=== PATIENT | female | born 1955 | race Caucasian/White ===

== ENCOUNTER 2017-01-16 18:37 | Emergency (ER) | payer BC ==
[~2017-01-16] VITALS: Ht 154.9 cm; Wt 96.6 kg
[~2017-01-16 18:37] MED LIST: AMLO-218 PO; ASPI81TA3 PO; ATEN-51 PO; BENA40TA41 PO; ENAL5TAB89 PO; ERGO500014 PO; ERGO50007 PO; FAMO20TA18 PO; IBUP-1542 PO; NITR0.4T32 SL; OMEP20CA16 PO; OXYB5TAB7 PO; TEMA-106 PO; TEMA15CA PO; TRAM50TA2 PO; [UNRECOGNIZED DRUG - CODE] PO; [UNRECOGNIZED DRUG - CODE] PO
[2017-01-16 18:41] VITALS: Ht 154.9 cm; Wt 96.6 kg
[2017-01-16] MEDS ORDERED: PRED20TA PO (19:02)
[2017-01-16] MEDS ORDERED: FEXO180T61 PO (19:02)
[2017-01-16] MEDS ORDERED: TRIA15CR55 TOP (19:02)
[2017-01-16] MEDS ORDERED: ELIM TOP (19:02)
--- NOTE | 2017-01-16 19:10 | ERD ---
ER Documentation Chief Complaint Chief Complaint rash to right arm/leg x 2 weeks, states possible insect bites HPI 61-year-old female presents with itchy bumps on arms trunk and legs intermittently for the last 2 weeks. Also because he has similar lesions although fever. Think he may be appearing well in the house. There is no new pets, or new new dwelling's history of possible known insect exposures. There is no fevers, vomiting, shortness breath or chest pain. ROS All systems reviewed and are negative except as per history of present illness. Medications Home Meds Active Scripts Permethrin* (Elimite*) 5% Cr, 1 APPLIC TOP ONCE for 1 Day, TUB 2 bottles. Okay to treat partner as well. Apply at night and wash off in the morning. Wash all in the morning. Prov:KEEGAN MARTIN MD 01/16/17 Fexofenadine Hcl* (Angeli*) 180 Mg Tablet, 180 MG PO DAILY, #15 TAB Prov:KEEGAN MARTIN MD 01/16/17 Prednisone* (Prednisone*) 20 Mg Tab, 40 MG PO DAILY for 5 Days, TAB Prov:KEEGAN MARTIN MD 01/16/17 Triamcinolone Acetonide (Triamcinolone Acetonide) 0.1% - 15 Gm Cream.gm., 1 APPLIC TOP QID, #1 TUB Prov:KEEGAN MARTIN MD 01/16/17 Tramadol HCl (Tramadol HCl) 50 Mg Tablet, 50 MG PO Q6 Y for PAIN, #20 TAB Prov:KEEGAN ROLDNA PA-C 09/18/15 Ibuprofen* (Motrin*) 600 Mg Tab, 600 MG PO Q6H Y for PAIN AND OR ELEVATED TEMP, #30 TAB Prov:KEEGAN ROLDAN PA-C 09/18/15 Nitroglycerin* (Nitroglycerin* SL) 0.4 Mg Tab.subl, 0.4 MG SL Q5MIN Y for CHEST PAIN, #30 TAB Prov:CHRISTIANO BLANCO MD 05/30/14 Reported Medications Temazepam (Restoril) 15 Mg Cap, 15 MG PO QHS Y for slee, CAP 05/29/14 Ergocalciferol* (Drisdol* (Vitamin D2)) 50,000 Unit Capsule, 24347 UNIT PO Q7D, CAP 05/29/14 Famotidine* (Famotidine*) 20 Mg Tablet, 20 MG PO DAILY, TAB 05/29/14 Atenolol* (Atenolol*) 25 Mg Tablet, 25 MG PO DAILY, TAB 05/29/14 Amlodipine Besylate* (Norvasc*) 10 Mg Tablet, 10 MG PO DAILY, TAB 05/29/14 Benazepril Hcl* (Benazepril Hcl*) 40 Mg Tablet, 40 MG PO DAILY, TAB 05/29/14 Aspirin (Aspirin) 81 Mg Chew, 81 MG PO DAILY, TAB.CHEW 05/29/14 Allergies Allergies: Coded Allergies: No Known Allergy (Verified , 05/13/09) PMhx/Soc Medical and Surgical Hx: pt denies Surgical Hx History of Surgery: No Anesthesia Reaction: No Hx Neurological Disorder: No Hx Respiratory Disorders: No Hx Cardiac Disorders: Yes (HTN ) Hx Psychiatric Problems: No Hx Miscellaneous Medical Probl: No Hx Alcohol Use: No Hx Substance Use: No Hx Tobacco Use: No Physical Exam Vitals Vital Signs Date Time Temp Pulse Resp B/P Pulse Ox O2 Delivery O2 Flow Rate FiO2 01/16/17 18:41 98.1 84 20 160/87 98 Physical Exam Const: [] Alert, [id number]. Obese. Head: Atraumatic Eyes: Normal Conjunctiva ENT: Normal External Ears, Nose and Mouth. Neck: Full range of motion..~ No meningismus. Resp: Clear to auscultation bilaterally Cardio: Regular rate and rhythm, no murmurs Abd: Soft, non tender, non distended. Normal bowel sounds Skin: No petechiae or rashes scattered excoriated papules on the trunk and extremities and thought erythema, warmth or induration, streaking or discharge. Back: No midline or flank tenderness Ext: No cyanosis, or edema Neur: Awake and alert Psych: Normal Mood and Affect Procedures/MDM Patient presents with signs and symptoms of what appear to be local reactions to insect bites. They do not have the classic appearance of scabies but given the duration will treat with permethrin with treatment of her spouse as well as well as triamcinolone, Angeli and short course of prednisone. Is no evidence of cellulitis, purpura or life-threatening rashes. There are advised to fumigate the household as well. The patient was stable with no new complaints during the ER course. Clinically, there is no current evidence to suggest meningitis, sepsis, acute abdomen, pneumonia, acute coronary syndrome, pulmonary embolism, or any other emergent condition appearing to require further evaluation or hospitalization. The patient should certainly return for any new or worsening symptoms per the aftercare instructions. They should otherwise follow-up with her primary care doctor for reevaluation this week. Departure Diagnosis: Primary Impression: Insect bites Encounter type: initial encounter Qualified Code: W57.XXXA - Insect bite, initial encounter Additional Impression: Rash Condition: Stable Patient Instructions: Insect Bites and Stings Additional Instructions: We will treat for scabies that may be mites or some other type of insects. Recommend fumigate household as well for persistent symptoms. KEEGAN MARTIN MD Jan 16, 2017 19:10
== END 2017-01-16 19:20 | disposition home or self-care (01) ==
LOC: FTE 18:37
DX: S20.362A Insect bite (nonvenomous) of left front wall of thorax, initial encounter (principal); S40.861A Insect bite (nonvenomous) of right upper arm, initial encounter; S80.861A Insect bite (nonvenomous), right lower leg, initial encounter; I10 Essential (primary) hypertension; W57.XXXA Bitten or stung by nonvenomous insect and other nonvenomous arthropods, initial encounter; Y92.9 Unspecified place or not applicable; Z79.82 Long term (current) use of aspirin
CPT/HCPCS: 99284

== ENCOUNTER 2017-12-29 07:55 | Emergency (ER) | END 2017-12-29 09:05 | disposition home or self-care (01) ==

== ENCOUNTER 2017-12-30 01:28 | Emergency (ER) | END 2017-12-30 03:30 | disposition home or self-care (01) ==

== ENCOUNTER 2018-02-06 23:57 | Emergency (ER) | END 2018-02-07 01:44 | disposition home or self-care (01) ==